=== PATIENT | male | born 1960 | race Caucasian/White ===

== ENCOUNTER 2022-06-01 07:52 | Outpatient (CLI) | payer BC, SELFPAY ==
[2022-06-01 12:54] LABS: Albumin* 4.8 g/dL (3.3-5.0); Chloride* 102 mmol/L (96-114); Sodium* 138 mmol/L (135-149)
[2022-06-01 12:55] LABS: Potassium* 4.5 mmol/L (3.6-5.1)
[2022-06-01 12:57] LABS: Aspartate Amino Transferase* 42 U/L (12-35); Blood Urea Nitrogen* 16 mg/dL (7-30); Carbon Dioxide* 29 mmol/L (20-32); Cholesterol* 204 mg/dL (90-199); Estimated Glomerular Filt Rate 86 ml/min; Glucose* 90 mg/dL (60-115); Total Protein* 7.5 g/dL (6.0-8.3)
[2022-06-01 12:58] LABS: Alanine Aminotransferase* 39 U/L (4-50); Alkaline Phosphatase* 58 U/L (40-150); Calcium* 10.2 mg/dL (8.4-10.6); HDL Cholesterol* 67 mg/dL (>=40); LDL Cholesterol Calculated 117 mg/dL (<100); Triglycerides* 102 mg/dL (40-149)
[2022-06-01 13:51] LABS: PSA Screen* 2.01 ng/mL (0.10-4.00)
== END 2022-06-01 07:53 | disposition home or self-care (01) ==
PROVIDERS: PCP Family Medicine; Visit Provider Family Medicine
DX: Z00.00 Encounter for general adult medical examination without abnormal findings (principal); E78.5 Hyperlipidemia, unspecified; Z12.5 Encounter for screening for malignant neoplasm of prostate
CPT/HCPCS: 80053; 80061; 84153

== ENCOUNTER 2023-06-20 07:35 | Outpatient (CLI) | payer BC, SELFPAY | END 2023-06-20 07:36 | disposition home or self-care (01) | LOC: NFLDREF 06-23 01:13 | PROVIDERS: PCP Family Medicine; Referring Provider Family Medicine; Visit Provider Family Medicine | DX: Z00.00 Encounter for general adult medical examination without abnormal findings (principal); E78.5 Hyperlipidemia, unspecified; R31.0 Gross hematuria; R79.89 Other specified abnormal findings of blood chemistry; Z12.5 Encounter for screening for malignant neoplasm of prostate | CPT/HCPCS: 80053; 80061; 84153; 86200; 86431 ==

== ENCOUNTER 2024-06-25 08:40 | Outpatient (CLI) | payer BC, SELFPAY ==
--- OUTSIDE RECORDS SUMMARY | 2024-06-28 19:21 | XMS_ITS | Clinical Summary ---
Author Organization [facility] Address [place], [place] [address] Care Team Providers Care Real Estate Asset Manager Name Role Phone Bernabe Canas MD Primary Care Provider [phone] Allergies No known active allergies Medications Medication Sig Dispensed Refills Start Date End Date Status simvastatin (ZOCOR) 10 mg tablet Take 1 tablet by mouth at bedtime. Not sure of dosage 0 05/08/2010 Active aspirin 81 mg tablet Take 1 tablet by mouth once daily with a meal. 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 03/22/2016 UPPER RESPIRATORY INFECTION - ACUTE 11/06/2004 Routine general medical exam ination at a health care facility 04/14/2004 Contusion of chest wall 04/14/2004 Impacted cerumen 04/14/2004 Benign neoplasm of skin, site unspecified 2003 HYPERLIPIDEMIA - MIXED 07/09/2001 HERPES SIMPLEX, UNCOMPLICATED 05/08/2000 Immunizations Name Administration Dates Next Due Td (Age >=7 Years) 04/14/2004 Family History Medical History Relation Name Comments Heart Disease Father Hypertension Father Other Father angioplasty/gla ucoma Relation Name Status Comments Father Alive Mother Alive Social History Tobacco Use Types Packs/Day Years Used Date Smoking Tobacco: Never Smokeless Tobacco: Never Alcohol Use Standard Drinks/Week Comments Yes 0 (1 standard drink = 0.6 oz pur e alcohol) Alcoholic Drinks/day: <1 Sex and Gender Information Value Date Recorded Sex Assigned at Not on file Gender Identity Not on file Sexual Orientation Not on file Obstetrics History Last Filed Vital Signs Vital Sign Reading Time Taken Comments Blood Pressure 136/85 07/25/2018 2:31 PM ROTARY SAW OPERATOR Pulse 53 07/25/2018 2:31 PM ROTARY SAW OPERATOR Temperature 36.8 ??C (98.3 ??F) 11/06/2004 12:[address] Respiratory Rate 16 04/14/2004 12:00 AM CDT Oxygen Saturation 98% 11/06/2004 12:00 AM ROTARY SAW OPERATOR Inhaled Oxygen Concentration - - Weight 84.4 kg (186 lb) 10/26/2005 1:00 PM ROTARY SAW OPERATOR Height 182.9 cm (6') 10/26/2005 1:00 PM ROTARY SAW OPERATOR Body Mass Index 25.23 10/26/2005 1:00 PM ROTARY SAW OPERATOR Plan of Treatment Health Maintenance Due Date Last Done Comments Tdap 01/23/1972 Depression screening for age 12+ 1973 HIV for age 15-65 01/23/1976 BMI (ht and wt on same day) for age 18+ 1979 Hepatitis C screening for age 18-79 1979 Colonoscopy through age 75 2006 Lipids for age 45-75 09/12/2010 09/12/2005, 04/21/2004, 06/17/2001, Additional history exists Zoster (shingles) series for age 50+ (1 of 2) 2011 Tetanus booster 04/14/2014 04/14/2004 COVID-19 vaccine series (2023- season) 2024 06/25/2023, 05/03/2022, 06/25/2021, Additional history exists Influenza for age 50-64 04/26/2024 Pneumococcal series for age 6-64 Aged Out No longer eligible based on patient's age to complete this topic Procedures Procedure Name Priority Date/Time Associated Diagnosis Comments LIPID PANEL Timed 09/12/2005 5:05 PM ROTARY SAW OPERATOR from Last 3 Months or Most Recently Relevant to Health Maintenance Results * (ABNORMAL) LIPID PANEL (09/12/2005 5:05 PM ROTARY SAW OPERATOR) CHOLESTEROL,TOTAL 282(H) 110 - 199 mg/dL [facility] TRIGLYCERIDES 82 40 - 149 mg/dL [facility] HDL CHOLESTEROL 63 >40 mg/dL [facility] CHOL/HDL RATIO 4.48 <4.51 [facility] LDL CHOLESTEROL 203(H) <131 mg/dL [facility] PATIENT STATUS Fasting [facility] 09/12/2005 5:05 PM ROTARY SAW OPERATOR 09/13/2005 2:13 PM ROTARY SAW OPERATOR Edouard Layne MD CHEMISTRY [facility] [place] ZIP [phone] [id number] from Last 3 Months or Most Recently Relevant to Health Maintenance Care Teams Real Estate Asset Manager Relationship Specialty Start Date End Date Bernabe Canas MD [address] [place] [id number] PCP - General Family Practice 01/03/21
== END 2024-06-25 08:41 | disposition home or self-care (01) ==
PROVIDERS: PCP Family Medicine; Referring Provider Family Medicine; Visit Provider Family Medicine
DX: E78.5 Hyperlipidemia, unspecified (principal); Z12.5 Encounter for screening for malignant neoplasm of prostate
CPT/HCPCS: 80053; 80061; G0103

== ENCOUNTER 2025-06-28 08:09 | Outpatient (CLI) | payer BC, SELFPAY | END 2025-06-28 08:10 | disposition home or self-care (01) | LOC: NFLDREF 07-01 09:34 | PROVIDERS: PCP Family Medicine; Referring Provider Family Medicine; Visit Provider Family Medicine | DX: E78.5 Hyperlipidemia, unspecified (principal); Z00.00 Encounter for general adult medical examination without abnormal findings | CPT/HCPCS: 80053; 80061; G0103 ==